=== PATIENT | male | born 1960 | race Caucasian/White ===

== ENCOUNTER 2018-07-17 12:58 | Inpatient (IN) | payer BC ==
[2018-07-17] VITALS (485 sets, daily range): BP systolic 108–145; BP diastolic 81–94; PULSE 63–79; TEMP 98.2; O2SAT 87–99
[~2018-07-17] VITALS: Ht 188 cm; Wt 106.7 kg
[~2018-07-17 12:58] MED LIST: ASPIRIN 32325 MG/TAB PO; CALCIUM 500500 M2 PO; CARDIZEM CD120 MG PO; CEFTIN500 MG PO; DIAZEPAM2 MG PO; ECHINACEA PURPU80 MG PO; FAMILY PHARMAC0.4 MG PO; FLOMAX 0.40.4 MG/CAP PO; GINKO BILOBA60 MG PO; GRAPE SEED EXTR50 M1 PO; LOPRESSOR PO; NORCO 325 MG-51 TAB PO; PLAVIX 75MG TAB75 MG PO; VITAMIN C BUFF500 MG PO; ZESTRIL2.5 MG PO; ZOCOR80 MG PO; ZOFRAN 4MG T4 MG/TAB PO; ZYRTEC10 MG PO; [UNRECOGNIZED DRUG - CODE]; [UNRECOGNIZED DRUG - OTHER] PO; [UNRECOGNIZED DRUG - OTHER] PO
[2018-07-17 13:16] LABS: BASO # 0.1 (0.0-0.2); BASO % 0.8 % (0.0-2.0); EOS # 0.1 (0.0-0.7); EOS % 1.1 % (0-4.0); GRAN # 5.4 (1.4-6.5); GRAN % 73.2 % (42.2-75.2); HEMATOCRIT 39.1 % (42.0-52.0); HEMOGLOBIN 13.8 g/dl (13.5-18.0); LYMPH # 1.1 (1.2-3.4); LYMPH % 15.1 % (20.0-51.0); MEAN CELL VOLUME 89 fl (80.0-100.0); MEAN CORPUSCULAR HEMOGLOBIN 31 pg (27.0-31.0); MEAN CORPUSCULAR HGB CONC 35 g/dl (33.0-37.0); MEAN PLATELET VOLUME 9.9 fl (7.4-10.4); MONO # 0.7 (0.1-0.6); MONO % 9.5 % (1.7-9.3); PLATELET COUNT 243 K/mm3 (130-400); RED BLOOD COUNT 4.42 M/mm3 (4.20-5.60); REDCELL DISTRIBUTION WIDTH-CV 12.5 % (11.5-14.5)
[2018-07-17 13:25] LABS: INR 1.1 (0.8-3.0)
[2018-07-17 13:27] LABS: PARTIAL THROMBOPLASTIN TIME 33.9 SECONDS (26.0-37.0)
[2018-07-17 13:28] LABS: CALCIUM 9.1 mg/dL (8.4-10.2); CREATININE, serum 1.11 mg/dL (0.66-1.25); POTASSIUM 4.2 mmol/L (3.4-5.0); TOTAL PROTEIN 7.3 gm/dL (6.4-8.2)
[2018-07-17 13:44] LABS: TROPONIN-I 0.347 ng/mL (0.000-0.034)
[2018-07-17] MEDS ORDERED: ASPI325T6 PO (13:50)
[2018-07-17] MEDS ORDERED: PHARMASSURE MA500 MG PO (20:13)
[2018-07-17] MEDS ORDERED: MASON NATURAL1200 MG PO (20:14)
[2018-07-17] MEDS ORDERED: NATURE'S BLEND600 M2 PO (20:14)
[2018-07-17] MEDS ORDERED: NATURAL E400 IU PO (20:15)
[2018-07-17] MEDS ORDERED: MASON NATURAL500 MG PO (20:16)
[2018-07-17] MEDS ORDERED: FOLIC ACID0.4 MG PO (20:17)
[2018-07-17] MEDS ORDERED: MOTRIN 200200 MG/TAB PO (20:17)
[2018-07-17] MEDS ORDERED: ASPIRIN 32325 MG/TAB PO (20:18)
[2018-07-17] MEDS ORDERED: CLARITIN 1010 MG/TAB PO (20:18)
[2018-07-17] MEDS ORDERED: ALERTNESS AID200 MG PO (20:19)
[2018-07-18] VITALS (1143 sets, daily range): BP systolic 102–129; BP diastolic 57–89; PULSE 54–72; TEMP 98–98.4; O2SAT 88–100
[2018-07-18 06:18] LABS: CALCIUM 8.3 mg/dL (8.4-10.2); CREATININE, serum 0.96 mg/dL (0.66-1.25); POTASSIUM 4.1 mmol/L (3.4-5.0)
[2018-07-18 06:45] LABS: TROPONIN-I 6.6 ng/mL (0.000-0.034)
[2018-07-19] VITALS (339 sets, daily range): BP systolic 113–118; BP diastolic 79–87; PULSE 66–72; TEMP 98.1–98.3; O2SAT 90–99
[2018-07-19 05:49] LABS: BASO # 0.1 (0.0-0.2); BASO % 0.9 % (0.0-2.0); EOS # 0.2 (0.0-0.7); EOS % 3.4 % (0-4.0); GRAN # 3.4 (1.4-6.5); GRAN % 59.7 % (42.2-75.2); HEMOGLOBIN 13.3 g/dl (13.5-18.0); LYMPH # 1.3 (1.2-3.4); LYMPH % 23.4 % (20.0-51.0); MEAN CELL VOLUME 91 fl (80.0-100.0); MEAN CORPUSCULAR HEMOGLOBIN 31 pg (27.0-31.0); MEAN CORPUSCULAR HGB CONC 34 g/dl (33.0-37.0); MEAN PLATELET VOLUME 10.4 fl (7.4-10.4); MONO # 0.7 (0.1-0.6); MONO % 12.4 % (1.7-9.3); PLATELET COUNT 198 K/mm3 (130-400); RED BLOOD COUNT 4.29 M/mm3 (4.20-5.60)
[2018-07-19 06:03] LABS: CALCIUM 8.8 mg/dL (8.4-10.2); CREATININE, serum 1.03 mg/dL (0.66-1.25); POTASSIUM 4.3 mmol/L (3.4-5.0)
[2018-07-19] MEDS ORDERED: LIPITOR 40MG TA40 MG PO (08:49)
[2018-07-19] MEDS ORDERED: NITROSTAT0.4 MG/TAB SL (08:49)
[2018-07-19] MEDS ORDERED: PLAVIX 75MG TAB75 MG PO (08:49)
[2018-07-19] MEDS ORDERED: LOPRESSOR 225 MG/TAB PO (08:50)
[2018-07-19] MEDS ORDERED: ASPIRIN E.C. 8181 MG PO (08:50)
== END 2018-07-19 10:30 | disposition home or self-care (01) | DRG 247 ==
LOC: COL.ER 12:58 → ICU 13:55
PROVIDERS: Family Medicine; Hospitalist; Internal Medicine Interventional Cardiology
PROC: 027135Z Dilation of Coronary Artery, Two Arteries with Two Drug-eluting Intraluminal Devices, Percutaneous Approach (ICD-10-PCS; principal; 2018-07-18)
PROC: B2111ZZ Fluoroscopy of Multiple Coronary Arteries using Low Osmolar Contrast (ICD-10-PCS; 2018-07-18)
PROC: B2151ZZ Fluoroscopy of Left Heart using Low Osmolar Contrast (ICD-10-PCS; 2018-07-18)
PROC: 4A023N7 Measurement of Cardiac Sampling and Pressure, Left Heart, Percutaneous Approach (ICD-10-PCS; 2018-07-18)
DX: I21.4 Non-ST elevation (NSTEMI) myocardial infarction (principal); I25.10 Atherosclerotic heart disease of native coronary artery without angina pectoris; I10 Essential (primary) hypertension; Z95.5 Presence of coronary angioplasty implant and graft; E78.5 Hyperlipidemia, unspecified
CPT/HCPCS: 99222-AI; 99232-AI; 99239; C1725; C1760; C1769; C1874; C1887; C1894; C9113; C9600; C9601; J1327; J1644; J2250; J3010; J7030; Q9967

== ENCOUNTER 2021-06-14 11:25 | Day surgery (SDC) | payer BC ==
[2021-06-14] VITALS (10 sets, daily range): BP systolic 105–121; BP diastolic 16–84; PULSE 60–72; TEMP 98.6
[~2021-06-14] VITALS: Ht 188 cm; Wt 116.0 kg
[~2021-06-14 11:25] MED LIST changes: +ALERTNESS AID200 MG PO; +ASPI325T6 PO; +ASPIRIN E.C. 8181 MG PO; +CLARITIN 1010 MG/TAB PO; +FOLIC ACID0.4 MG PO; +LIPITOR 40MG TA40 MG PO; +LOPRESSOR 225 MG/TAB PO; +MASON NATURAL1200 MG PO; +MASON NATURAL500 MG PO; +MOTRIN 200200 MG/TAB PO; +NATURAL E400 IU PO; +NATURE'S BLEND600 M2 PO; +NITROSTAT0.4 MG/TAB SL; +PHARMASSURE MA500 MG PO
[2021-06-14] MEDS ORDERED: PRALUENT P75 MG/1 ML SQ (12:05)
[2021-06-14] MEDS ORDERED: PAMELOR 25MG25 MG PO (12:06)
[2021-06-14] MEDS ORDERED: PROTONIX 40MG T40 MG PO (12:06)
[2021-06-14] MEDS ORDERED: PLAVIX 75MG TAB75 MG PO (12:06)
[2021-06-14] MEDS ORDERED: LIPITOR 80MG80 MG PO (12:07)
[2021-06-14] MEDS ORDERED: TOPROL XL 25MG25 MG PO (12:07)
[2021-06-14] MEDS ORDERED: ASPIRIN E.C. 8181 MG PO (12:08)
[2021-06-14] MEDS ORDERED: CLARITIN 1010 MG/TAB PO (12:08)
[2021-06-14 12:42] LABS: HEMOGLOBIN 12.4 g/dl (13.5-18.0); MEAN CELL VOLUME 91 fl (80.0-100.0); MEAN CORPUSCULAR HEMOGLOBIN 31 pg (27.0-31.0); MEAN CORPUSCULAR HGB CONC 34 g/dl (33.0-37.0); MEAN PLATELET VOLUME 9.7 fl (7.4-10.4); PLATELET COUNT 242 K/mm3 (130-400); RED BLOOD COUNT 4.07 M/mm3 (4.20-5.60); REDCELL DISTRIBUTION WIDTH-CV 12.8 % (11.5-14.5)
[2021-06-14 12:45] LABS: HEMATOCRIT 36.9 % (42.0-52.0)
[2021-06-14 12:49] LABS: INR 1.1 (0.8-3.0); PROTHROMBIN TIME 11.9 SECONDS (9.7-12.8)
[2021-06-14 12:51] LABS: PARTIAL THROMBOPLASTIN TIME 34.9 SECONDS (26.0-37.0)
[2021-06-14 13:02] LABS: CREATININE, serum 1.25 mg/dL (0.72-1.25); POTASSIUM 4.8 mmol/L (3.5-4.5)
--- NOTE | 2021-06-14 13:24 | NUR ---
SEE MERGE FOR MEDICATION ADMINISTRATION TIMES/DOSAGES AND INTRA/POST SEDATION ASSESSMENT.
--- NOTE | 2021-06-14 15:15 | NUR ---
Pt back to [facility] from [facility]. bedside report from Jane RN. Pt is awake and alert, pwd, reg and unlabored resps. TR band to rt wrist, cms intact distal. NSR 60's on monitor. Pt aware of poc. call light in reach. Pt denies any needs, refuses offer of something to eat or drink. Pt content. wctm.
--- NOTE | 2021-06-14 18:00 | NUR ---
Pt ready for departure at this time. TR band has been deflated with no problem, site dressed with bandaid, folded 2x2 and coban. CMS remains intact distal. IV removed with cath intact, dressing applied. Pt is up and ambulatory with steady gait. I have reviewed dc/fu instructions with pt who verbalized understanding.; Pt refused a wheelchair. I ambulated with him and his [id number] to exit.
== END 2021-06-14 18:44 | disposition home or self-care (01) ==
LOC: COL.CAR 11:25
PROVIDERS: Internal Medicine Interventional Cardiology
DX: I25.10 Atherosclerotic heart disease of native coronary artery without angina pectoris (principal); I10 Essential (primary) hypertension; E78.5 Hyperlipidemia, unspecified; Z79.82 Long term (current) use of aspirin; Z79.899 Other long term (current) drug therapy
CPT/HCPCS: J1644; J2250; J3010; Q9967

== ENCOUNTER → 2024-05-03 | Outpatient (CLI) | payer BC ==
[~2024-05-03] MED LIST changes: +Gadoterate 20 ML VIAL IV ONE; +LIPITOR 80MG80 MG PO; +PAMELOR 25MG25 MG PO; +PRALUENT P75 MG/1 ML SQ; +PROTONIX 40MG T40 MG PO; +TOPROL XL 25MG25 MG PO
== END ==
LOC: COL.RAD 12:14
DX: R90.82 White matter disease, unspecified (principal); H81.09 Meniere's disease, unspecified ear
CPT/HCPCS: A9575

== ENCOUNTER → 2024-06-20 | Outpatient (CLI) | payer BC ==
[~2024-06-20] MED LIST changes: -Gadoterate 20 ML VIAL IV ONE; +Iohexol 300 - 100 ML VIAL IV ONE; +NS 100 ML IV SCH
== END ==
LOC: COL.RAD 13:30
DX: M50.31 Other cervical disc degeneration, high cervical region (principal); M89.38 Hypertrophy of bone, other site; M48.02 Spinal stenosis, cervical region; M50.322 Other cervical disc degeneration at C5-C6 level; M50.323 Other cervical disc degeneration at C6-C7 level; M47.812 Spondylosis without myelopathy or radiculopathy, cervical region
CPT/HCPCS: Q9967